=== PATIENT | female | born 1965 | race Caucasian/White ===

== ENCOUNTER → 2024-03-11 | Outpatient (CLI) | payer BC ==
--- NOTE | 2024-03-11 12:43 | CT ---
EXAMINATION TYPE: CT pelvis w con CT DLP: 410 mGycm, Automated exposure control for dose reduction was used. DATE OF EXAM: 03/11/2024 12:13 PM COMPARISON: None CLINICAL INDICATION:Female, 59 years old with history of R10.32 LEFT LOWER QUADRANT PAIN Z85.72 PERSO NAL HI; LLQ pain TECHNIQUE: Standard CT of the pelvis following the administration of 100 cc of Isovue [address] material and oral contrast. Coronal and sagittal reformats were performed. FINDINGS: BLADDER: Unremarkable REPRODUCTIVE: Unremarkable. BOWEL: Enteric contrast reaches the mid small bowel. No focal bowel wall thickening or surrounding in flammatory changes identified. Moderate stool burden identified within the colon. No diverticula iden tified within the visualized bowel. No evidence of bowel obstruction. PERITONEUM: No evidence of pneumoperitoneum or free fluid. VASCULATURE: No evidence of aortic aneurysm within the visualized distal abdominal aorta. MUSCULOSKELETAL: No acute osseous abnormalities LYMPH NODES: No evidence for lymphadenopathy. SOFT TISSUE/ABDOMINAL WALL: Unremarkable IMPRESSION: No CT evidence of an acute pelvic process. [facility], , 03/11/2024 12:40 PM
== END | disposition home or self-care (01) ==
LOC: RADCTMAIN 09:01
PROVIDERS: ATTEND Family Medicine
DX: R10.32 Left lower quadrant pain (principal); Z85.72 Personal history of non-Hodgkin lymphomas
CPT/HCPCS: 72193

== ENCOUNTER → 2024-04-17 | Outpatient (CLI) | payer BC ==
--- NOTE | 2024-04-17 19:03 | XR ---
EXAMINATION TYPE: XR Hip Complete RT DATE OF EXAM: 04/17/2024 6:44 PM COMPARISON: None CLINICAL INDICATION: Female, 59 years old with history of RIGHT HIP PAIN; [facility] TECHNIQUE: XR Hip Complete RT; Frontal and lateral views FINDINGS: No evidence for acute process, joint dislocation or significant soft tissue swelling. Osteo phyte formation of the superior acetabulum of the hip. There is mild joint space narrowing. IMPRESSION: 1. No evidence for acute process. 2. Mild hip osteoarthrosis. [facility], , 04/17/2024 7:01 PM
== END | disposition home or self-care (01) ==
LOC: RADXRMAIN 18:24
PROVIDERS: ATTEND Family Medicine
DX: M16.11 Unilateral primary osteoarthritis, right hip (principal)
CPT/HCPCS: 73502

== ENCOUNTER → 2024-06-26 | Outpatient (CLI) | payer BC ==
--- NOTE | 2024-06-26 11:10 | NM ---
EXAMINATION TYPE: NM hepatobiliary w EF DATE OF EXAM: 06/26/2024 COMPARISON: NONE INDICATION: Right upper quadrant pain TECHNIQUE: After the intravenous administration of 4.8 mCi Tc 99m Mebrofenin hepatobiliary scintigrap hy is performed. Images were obtained immediately post injection. FINDINGS: There is prompt uptake and excretion of radiotracer by the liver. Extrahepatic ducts are identified at 8 minutes. The gallbladder is visualized after 60 minutes. Small bowel activity is noted within 22 minutes. At one hour CCK was administered, patient was injected with Ensure, and gallbladder ejection fraction is calculated at 89 %, which is elevated. (Normal >35% and <80%.). IMPRESSION: 1. Ejection fraction of 89%, Correlate for biliary hyperkinesia [facility], Workstation: [email or web address], 06/26/2024 11:07 AM
== END | disposition home or self-care (01) ==
LOC: RADNMMAIN 06:49
PROVIDERS: ATTEND Family Medicine
DX: F90.8 Attention-deficit hyperactivity disorder, other type (principal)
CPT/HCPCS: 78226; A9537